=== PATIENT | male | born 1965 ===

== ENCOUNTER 2021-11-02 19:47 | Emergency (ER) | payer BC ==
[~2021-11-02] VITALS: Ht 182.9 cm; Wt 105.2 kg
[2021-11-02] MEDS ORDERED: ONDANSETRON 4 MG/2 ML VIAL IV ONE (20:30)
[2021-11-02] MEDS ORDERED: IV NORMAL SALINE 1000 ML BAG IV ONE (20:30)
[2021-11-02 20:49] LABS: MEAN CORPUSCULAR HEMOGLOBIN 32.6 uug (23.8-33.4); MEAN CORPUSCULAR VOLUME 94.5 fL (73.0-96.2); PLATELET COUNT (AUTO) 218 K/uL (152-348)
[2021-11-02] MEDS ORDERED: ONDANSETRON 4 MG/2 ML VIAL ONE (20:55)
[2021-11-02 21:01] LABS: ALANINE AMINOTRANSFERASE 98 U/L (16-63); ALKALINE PHOSPHATASE 69 U/L (50-136); ASPARTATE AMINOTRANSFERASE 36 U/L (15-37); BILIRUBIN,DIRECT 0.1 mg/dL (0.0-0.2); BILIRUBIN,TOTAL 0.3 mg/dL (0.2-1.0); CARBON DIOXIDE 20 mmol/L (21-32); CHLORIDE 104 mmol/L (98-107); POTASSIUM 3.8 mmol/L (3.5-5.1); TOTAL PROTEIN, SERUM 7.3 g/dL (6.4-8.2); UREA NITROGEN, BLOOD 10 mg/dL (7-18)
[2021-11-02 21:02] LABS: ETHANOL 367 MG/DL (0-0)
[2021-11-02 21:05] LABS: ACETAMINOPHEN < 2.0 ug/mL (10-30); GLUCOSE 381 mg/dL (74-106)
[2021-11-02 21:09] LABS: THYROID STIMULATING HORMONE 0.735 mIU/mL (0.358-3.740)
[2021-11-02] MEDS ORDERED: IV LACTATED RINGERS SOLUTION 1,000 ML IV ONE (21:30)
[2021-11-02] MEDS ORDERED: METFORMIN HCL 500 MG TABLET PO ONE (21:45)
[2021-11-02] MEDS ORDERED: POTASSIUM CHLORIDE 20 MEQ TAB.PRT.SR PO ONE (22:00)
[2021-11-02] MEDS ORDERED: INSULIN REGULAR, HUMAN 300 UNIT/3 ML VIAL IV ONE (22:00)
[2021-11-02] MEDS ORDERED: METFORMIN HCL 500 MG TABLET ONE (22:06)
[2021-11-02] MEDS ORDERED: INSULIN REGULAR, HUMAN 300 UNIT/3 ML VIAL ONE (22:29)
[2021-11-02] MEDS ORDERED: POTASSIUM CHLORIDE 20 MEQ TAB.PRT.SR ONE (22:41)
--- NOTE | 2021-11-02 22:57 | NUR ---
Summary of care. 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 IV #20 RAC IVFluids,insulin given.Metformin 500 mg oral. Patient was restless,comfort measures x2, offered condonences, suport of feelings of grief. Patient call to home was encouraged to stay by spouse Linda. Patient continued to be restless, ambulated urabno desided to call home and go home asked spouse to pick him up. RAC #20 SL DC'ed cath intact, dry dressing.
[2021-11-03 00:50] VITALS: BP 138/78
== END 2021-11-02 22:57 | disposition left against medical advice (07) ==
LOC: ER 19:47
DX: F10.129 Alcohol abuse with intoxication, unspecified (principal); Y90.8 Blood alcohol level of 240 mg/100 ml or more; E11.65 Type 2 diabetes mellitus with hyperglycemia; F17.210 Nicotine dependence, cigarettes, uncomplicated; I51.7 Cardiomegaly; R09.89 Other specified symptoms and signs involving the circulatory and respiratory systems; Z53.29 Procedure and treatment not carried out because of patient's decision for other reasons
CPT/HCPCS: 36415; 71045; 80048; 80076; 80299; 80320; 84443; 85025; 96361; 96374; 99284; J1815; J3490; A4663; G0480; J2405